=== PATIENT | male | born 1950 | race Caucasian/White ===

== ENCOUNTER 2017-01-11 06:00 | Day surgery (SDC) | payer MEDICARE ==
[~2017-01-11] VITALS: Ht 185.4 cm; Wt 118.2 kg
[~2017-01-11 06:00] MED LIST: ASPIRIN325 MG PO; ASPIRIN81 MG PO; BAYER CHEWABLE81 MG PO; BUPROPION HCL100 M1 PO; CELEXA40 MG PO; CORDARONE200 MG PO; FISH OIL 1,0001 CA1 PO; HALCION0.25 MG PO; HYDROCODONE-APA1 TAB PO; K-DUR20 MEQ PO; KRILL OIL 1,001 EAC1 PO; LASIX20 MG PO; PACERONE200 MG PO; PLAVIX75 MG PO; PRAVACHOL40 MG PO; XANAX0.5 MG PO; XANAX1 MG PO; ZESTORETIC 20/11 TAB PO
[2017-01-11] MEDS ORDERED: ASPIRIN325 MG PO (07:04)
[2017-01-11] MEDS ORDERED: LEXAPRO10 MG PO (07:06)
[2017-01-11] MEDS ORDERED: LISINOPRIL10 MG PO (07:07)
[2017-01-11 07:23] VITALS: BP 139/74; Ht 185.4 cm; Wt 118.2 kg
[2017-01-11 07:29] LABS: ANION GAP 13.8 mmol/L (8-16); CARBON DIOXIDE 26.3 mmol/L (21.0-32.0); CREATININE - SERUM 1.2 mg/dL (0.6-1.3); POTASSIUM - SERUM 4.1 mmol/L (3.5-5.1)
[2017-01-11 07:34] LABS: BASOPHILS 0.3 % (0-2); EOSINOPHILS 2.8 % (0-7); HEMATOCRIT 50.1 % (42.0-54.0); HEMOGLOBIN 17.5 g/dL (13.5-17.5); IMMATURE GRANULOCYTES 0.6 % (0-5); LYMPHOCYTES 20.5 % (15-50); MCH 32.4 pg (26.0-34.0); MCHC 34.9 g/dL (31.0-37.0); MCV 92.8 fL (80.0-100.0); MEAN PLATELET VOLUME 9.1 fL (7.4-10.4); MONOCYTES 10.8 % (2-11); PLATELET COUNT 137 10x3/uL (130-400); RDW 12.9 % (11.5-14.5); WBC 7.1 10x3/uL (4.8-10.8)
--- NOTE | 2017-01-11 09:01 | NUR ---
0845 APPLE JUICE GIVEN
--- NOTE | 2017-01-11 09:02 | NUR ---
WAS UP TO BATHROOM STATES PASSING GAS
--- NOTE | 2017-01-11 09:08 | NUR ---
FULL LIQUID TRAY GIVEN
--- NOTE | 2017-01-11 09:29 | NUR ---
DC TEACHING COMPLETE W/PRESCRIPT GIVEN TO . DEBORAH LIQUID TRAY WELL
--- NOTE | 2017-01-11 09:42 | NUR ---
0935 PIV DC W/CATHETER TIP INTACT
--- NOTE | 2017-01-11 09:48 | NUR ---
DC OUT TO CAR VIA WHEELCHAIR WITH DRIVING
--- NOTE | 2017-01-13 16:52 | OP ---
PATIENT NAME: IVELISSE CABRALES MEDICAL RECORD: [id number] :52 LOCATION:[facility] ADMISSION DATE: SURGEON: ZOË SILVA DO OPERATION DATE: 01/11/17 PROCEDURE: Colonoscopy with polypectomy. INDICATIONS FOR PROCEDURE: Screening colonoscopy and chronic constipation. SCOPE: Copanion video pediatric colonoscope. MEDICATIONS: Propofol 450 milligrams IV per anesthesia. WITHDRAWAL TIME: 19 minutes. ESTIMATED BLOOD LOSS: Minimal. COMPLICATIONS: None. FINDINGS: Informed consent was given. The patient was made comfortable with the above medication. After reaching an adequate level of sedation by slow IV push, the patient was placed on his left side. A digital rectal examination was performed and was normal. The endoscope was then advanced under direct visualization through the rectum to the cecum with visualization of the appendiceal orifice and ileocecal valve. There was a small, benign appearing sessile polyp located in the cecum which measured approximately 4 millimeters in diameter. It was removed using hot forceps. A second polyp located in the ascending colon measured approximately 4 millimeters in diameter. It was benign appearing and sessile. It was removed using a hot snare. The scope was then slowly withdrawn back while the mucosa was carefully examined. The prep in the cecum and ascending colon was poor to fair. It was difficult to wash all of the stool away making visualization difficult. For this reason, small polyps could have been missed. There were no other polyps visualized on this examination. No diverticula were specifically seen. Retroflexion was performed in the rectum where small nonbleeding internal hemorrhoids were visualized. The scope was completely withdrawn from the patient. The patient tolerated the procedure well, and there were no complications. IMPRESSIONS: 1. Two polyps as described above, located in the cecum and ascending colon removed with hot forceps and a hot snare. 2. Small, nonbleeding internal hemorrhoids. PLAN/RECOMMENDATIONS: 1. Discharge home when recovery parameters are met. 2. High fiber diet. 3. Continue current medications. 4. Add Linzess 290 micrograms by mouth daily for chronic idiopathic constipation. 5. Recommend a repeat colonoscopy in 2-3 years due to the polyps and somewhat poor prep. OPERATIVE REPORT [id number] IVELISSE CABRALES ZOË SILVA DO at 5648 CC: [id number] DICTATION DATE: 01/11/17 0800 FURNITURE FINISHER: DM 01/11/[address] [facility] 01/11/17 [facility] [address] [place] [address]
== END 2017-01-11 09:50 | disposition home or self-care (01) ==
LOC: D.OPS 06:00
PROVIDERS: Anesthesiology
DX: K63.5 Polyp of colon (principal); K64.8 Other hemorrhoids; K59.09 Other constipation; Z01.812 Encounter for preprocedural laboratory examination

== ENCOUNTER 2019-03-15 18:31 | Emergency (ER) | payer OTHER ==
[~2019-03-15] VITALS: Ht 185.4 cm; Wt 118.4 kg
[~2019-03-15 18:31] MED LIST changes: +LEXAPRO10 MG PO; +LISINOPRIL10 MG PO
[2019-03-15 19:11] VITALS: Ht 185.4 cm; Wt 118.4 kg
[2019-03-15] MEDS ORDERED: MULTI-DAY VITAM1 TAB PO (19:13)
[2019-03-15] MEDS ORDERED: BUPROPION HCL150 M1 PO (19:13)
[2019-03-15] MEDS ORDERED: VITAMIN D31000 UNI2 PO (19:14)
[2019-03-15] MEDS ORDERED: VITAMIN E200 UNI1 PO (19:14)
[2019-03-15 19:54] LABS: BASOPHILS 0.4 % (0-2); EOSINOPHILS 2.1 % (0-7); HEMATOCRIT 46.3 % (42.0-54.0); HEMOGLOBIN 16.3 g/dL (13.5-17.5); IMMATURE GRANULOCYTES 0.2 % (0-5); LYMPHOCYTES 28.1 % (15-50); MCH 30.6 pg (26.0-34.0); MCHC 35.2 g/dL (31.0-37.0); MCV 86.9 fL (80.0-100.0); MEAN PLATELET VOLUME 8.7 fL (7.4-10.4); MONOCYTES 9.5 % (2-11); NEUTROPHILS 59.7 % (40-80); RBC 5.33 10x6/uL (4.20-6.10); RDW 14.2 % (11.5-14.5); WBC 9.3 10x3/uL (4.8-10.8)
[2019-03-15 19:59] LABS: PLATELET COUNT 169 10x3/uL (130-400)
[2019-03-15 20:16] LABS: ALBUMIN 3.6 g/dL (3.4-5.0); ANION GAP 15.3 mmol/L (8-16); BILIRUBIN - TOTAL 0.42 mg/dL (0.2-1.3); CALCIUM 8.7 mg/dL (8.5-10.1); CARBON DIOXIDE 22.7 mmol/L (21.0-32.0); CREATININE - SERUM 1.2 mg/dL (0.6-1.3); PROTEIN - SERUM 7.5 g/dL (6.4-8.2)
[2019-03-15] MEDS ORDERED: CYCLOBENZAPRINE10 MG PO (20:59)
[2019-03-15 22:13] VITALS: BP 140/93
== END 2019-03-15 23:11 | disposition home or self-care (01) ==
LOC: D.ER 18:31
PROVIDERS: Family Medicine
DX: M54.5 Low back pain (principal); M54.31 Sciatica, right side

== ENCOUNTER → 2019-04-13 09:43 | Outpatient (CLI) | payer OTHER ==
[2019-03-15 19:11] VITALS: BMI 34.4
[~2019-04-13 09:43] MED LIST changes: +BUPROPION HCL150 M1 PO; +CYCLOBENZAPRINE10 MG PO; +MULTI-DAY VITAM1 TAB PO; +NEURONTIN 300300 MG PO; +VITAMIN D31000 UNI2 PO; +VITAMIN E200 UNI1 PO
== END | disposition home or self-care (01) ==
LOC: D.MRI 04-10 08:30
PROVIDERS: ATTEND Orthopaedic Surgery
DX: M54.16 Radiculopathy, lumbar region (principal)

== ENCOUNTER → 2019-05-19 09:35 | Outpatient (CLI) | payer OTHER ==
[2019-03-15 19:11] VITALS: BMI 34.4
--- NOTE | 2019-05-22 09:28 | EC ---
PATIENT:IVELISSE CABRALES DATE OF SERVICE: 05/19/19 SEX: M MEDICAL RECORD: [id number] DATE OF : 52 [facility] AGE OF PATIENT: 68 ADMISSION DATE: 05/19/19 REFERRING PHYSICIAN: INTERPRETING PHYSICIAN: MARGUERITE TORRES MD ECHOCARDIOGRAM REPORT ECHO CHARGES 4 ECHO COMPLETE Date: 05/19/19 CLINICAL DIAGNOSIS: SALEEM/ANGINA H/O CAD/HTN ECHOCARDIOGRAPHIC MEASUREMENTS (adult normal given) AC root (d.<3.7cm) 3.8 cm LV Septum d (<1.2 cm> 1.0 cm Valve Excursion 1.8 cm LV Septum (systole) 1.7 cm Left Atria (s.<4.0cm> 3.7 cm LVPW d(<1.2cm) 1.2 cm RV (d.<2.3cm) 2.7 cm LVPW (sytole) 1.7 cm LV diastole(<5.6CM) 1.8 cm MV E-F(>70mm/sec) cm LV systole 2.9 cm LVOT Diameter 2.2 cm MV exc.(>10mm) cm Est.ejection fraction (50-75%) % DOPPLER: LVIT cm/sec A 70.0 cm/sec E 60.0 cm/sec LA cm/sec RVSP mmHg LVOT 63.0 cm/sec AOP1/2T m/s Asc. Ao 85.0 cm/sec RVOT 57.0 cm/sec RA cm/sec PA 64.0 cm/sec AV Gradient Peak 2.9 mmHg AV Mean 1.6 mmHg AV Area 3.6 cm MV Gradient Peak 2.9 mmHg MV Mean 1.0 mmHg MV Area cm COMMENTS: OP - HC Planer Stone: 1 JENNYFER WICHITA Therapist'S Assistant: 1 Dr. Torres TAPE# PACS Pericardial Effusion N DATE OF SERVICE: FINDINGS: 1. Left ventricular chamber size is within normal limits. Left ventricular systolic function is normal. Overall ejection fraction estimated at 50%. 2. Left atrium, right atrium, and right ventricular chamber sizes are within normal limits. 3. Valvular structures have normal structure and motion. 4. Doppler interrogation reveals no significant valvular insufficiency or stenosis. Pulmonary systolic pressure is normal, estimated at 29 mmHg. ECHOCARDIOGRAM REPORT [id number] IVELISSE CABRALES 5. No evidence of pericardial effusion or left ventricular thrombus. TRANSINT:[id number] Voice Confirmation ID: [id number] DOCUMENT ID: [id number] MARGUERITE TORRES MD at 0928 CC: [id number] DICTATION DATE: 05/20/19 1059 TIP TESTER: 05/20/19 1108 DEP CLI 05/19/19 [place] [id number] [place] [id number]
--- NOTE | 2019-05-22 09:28 | ST ---
PATIENT:IVELISSE CABRALES MEDICAL RECORD: [id number] SEX: M LOCATION:[facility] ORDER #: ADMISSION DATE: 05/19/19 AGE OF PATIENT: 68 REFERRING PHYSICIAN: INTERPRETING PHYSICIAN: MARGUERITE PALOMO MD DATE OF SERVICE: 05/19/2019 Nuclear stress test INDICATION: Angina and coronary artery disease, shortness of breath, hypertension, hyperlipidemia. Preoperative evaluation for back surgery. He was exercised on standard Lexiscan protocol with 33 mCi of sestamibi injected at peak stress, 11 mCi was used previously for rest images. FINDINGS: Gated SPECT reveals preserved ejection fraction at 55% with good wall motion and thickening and brightening throughout all segments. SPECT Imaging: Cardiolite was used as myocardial perfusion agent. There are reversible changes anteriorly, apically, as well as laterally with the basal, mid, apical anterior segments, apical lateral, mid lateral, basal lateral segments throughout the apex itself. The degree of reversibility is moderate. The amount of myocardium involved is moderate to large. OVERALL IMPRESSION: This is a high risk abnormal nuclear stress test reversible ischemia anteriorly, apically, and laterally suggestive of multivessel hemodynamically significant coronary artery disease. TRANSINT:[id number] Voice Confirmation ID: [id number] DOCUMENT ID: [id number] MARGUERITE PALOMO MD at 0928 CC: JOSE WALKER MD [id number] DICTATION DATE: 05/20/19 1107 PATHOLOGY SECRETARY/TRANSCRIPTIONIST: 05/21/19 0026 DEP CLI 05/19/19 [place] [id number] [place] [id number]
== END | disposition home or self-care (01) ==
LOC: D.HCCECHO 09:30
PROVIDERS: ATTEND Internal Medicine Interventional Cardiology
DX: I25.119 Atherosclerotic heart disease of native coronary artery with unspecified angina pectoris (principal)

== ENCOUNTER 2019-05-29 08:10 | Outpatient (CLI) | payer OTHER ==
[~2019-05-29] VITALS: Ht 185.4 cm; Wt 115.9 kg
--- NOTE | ~2019-05-29 | HEMODYNAMI ---
PATIENT:IVELISSE CABRALES MEDICAL RECORD: [id number] : 52 LOCATION:[facility] ADMISSION DATE: 05/29/19 Generatedon:05/29/201911:05 Patient name: IVELISSE CABRALES Patient #: [id number] SSN: : 1950 Date of study: 05/29/2019 Page: Of Hemodynamic Procedure Report Patient Data Patient Demographics Procedure consent was obtained First Name: IVELISSE Gender: Male Last Name: KERON : 1950 [facility] Initial: YISEL Age: 68 year(s) Patient #: [id number] Race: Additional ID: [id number] Contact details Address: [address] [place] [address] State: [place] City: [place] Zip code: [address] Past Medical History Performed procedures and imaging results Date Procedure Procedure Results Comments Stress testing Positive->Intermediate with SPECT MPI risk History of disease Date Diagnosis Comments CAD PVD Hypertension Allergies Allergen Reaction Date Comments Reported Other allergy 05/29/2019 CLONAZEPAM Admission Admission Data Admission Date: 05/29/2019 Admission Time: 8:10 Arrival Date: 05/29/2019 Arrival Time: 0:00 Height (in.): 72.83 BSA: 2.38 (m2) Height (cm.): 185 BMI: 33.89 (kg/m2) Weight (lbs.): 255.74 Weight (kg.): 116 Lab Results Lab Result Date: 05/29/2019 Lab Result Time: 0:00 Biochemistry Name Units Result Min Max BUN mg/dl 19 --(----)*- 7 18 Creatinine mg/dl 1.2 --(---*)-- 0.6 1.3 eGFR ml/min 64.84550 *-(----)-- 90 120 NONAFRICAN CBC Name Units Result Min Max Hematocrit % 47.3 --(-*--)-- 42 54 Hemoglobin g/dl 16.6 --(---*)-- 13.5 17.5 Procedure Procedure Types Cath Procedure Diagnostic Procedure [facility] w/Coronaries w/Grafts Procedure Description Procedure Date Procedure Date: 05/29/2019 Procedure Start Time: 10:51 Procedure End Time: 11:02 Procedure Staff Name Function Igor Torres MD Performing Physician Mary Zamudio RT Monitor Angeline Saleh RT Scrub Zachary Hernández RN Nurse Indication CAD Procedure Data Cath Procedure Fluoroscopy Diagnostic fluoroscopy Total fluoroscopy Time: 2.8 time: 2.8 min min Diagnostic fluoroscopy Total fluoroscopy dose: 368 dose: 368 mGy mGy Contrast Material Contrast Material Type Amount (ml) Isovue 300 76 Entry Location Entry Primary Successful Side Size Upsize Upsize Entry Closure Succes sful Closure Location (Fr) 1 (Fr) 2 (Fr) Remarks Device Remarks Femoral Right 5 Fr Exoseal artery Estimated blood loss: 5 ml Diagnostic catheters Device Type Used For End Catheter Placement MULTIPACK Pigtail 5 Fr Procedure catheter MULTIPACK JL 4.0 5Fr Procedure catheter MULTIPACK 3DRC 5Fr Procedure catheter DIAGNOSTIC AR2 MOD 5 Fr Procedure catheter ([id number]) Procedure Complications No complications Procedure Medications Medication Administration Route Dosage 0.9% NaCl I.V. 100 ml/hr Oxygen etCO2 Nasal cannula 2 l/min Heparin Flush Bag added to field 2 bags (1000units/500ml NS) Lidocaine 2% added to field 20 Benadryl I.V. 50 mg Versed I.V. 2 mg Fentanyl I.V. 100 mcg Versed I.V. 2 mg Hemodynamics Rest BSA: 2.38 (m2) HGB: 16.6 (g/dl) O2 Consumption: Estimated: 267.92 (ml/min) O2 Co nsumption indexed: Estimated:112.57 (ml/min/m) Heart Rate: 61 (bpm) Snapshots Pre Cath Intra NCS Post Cath Vital Signs Time Heart Resp SPO2 etCO2 NIBP (mmHg) Rhythm Pain Sedation Rate (ipm) (%) (mmHg) Status Level (bpm) 10:40:11 60 14 95 0 138/87(115) NSR 0 (11) 10(A) , No pain 10:44:25 64 16 95 35.6 131/83(105) NSR 0 (11) 10(A) , No pain 10:48:35 64 15 96 18.5 132/85(115) NSR 0 (11) 10(A) , No pain 10:52:47 65 16 95 15.6 139/81(115) NSR 0 (11) 10(A) , No pain 10:56:59 67 20 95 0 134/76(101) NSR 0 (11) 9(A) , No pain 11:01:13 66 18 95 1.4 127/74(101) NSR 0 (11) 9(A) , No pain Medications Time Medication Route Dose Verified Delivered Reason Notes Eff ectiveness by by 10:39:46 0.9% NaCl I.V. 100 Zachary Zachary Per ml/hr Betty Hernández physician RN RN 10:39:56 Oxygen etCO2 2 Zachary Zachary for low 02 Nasal l/min Lorigan Alexandriaigan sats cannula RN RN 10:40:07 Heparin Flush added 2 Zachary Zachary used for Bag to bags Lorigan Betty procedure (1000units/500ml field RN RN NS) 10:40:19 Lidocaine 2% added 20ml Zachary Zachary for local to vial Lorigan Lorigan anesthetic field RN RN 10:40:56 Benadryl I.V. 50 mg Zachary Zachary Per Betty Hernández physician RN RN 10:50:33 Versed I.V. 2 mg Zachary Zachary for Lorigan Lorigan sedation RN RN 10:50:42 Fentanyl I.V. 100 Zachary Zachary for mcg Lorigan Lorigan sedation RN RN 10:52:14 Versed I.V. 2 mg Zachary Zachary for Lorigan Lorigan sedation RN individual pension consultant Log Time Note 10:18:33 Informed consent obtained and on chart 10:19:08 Procedure Status Elective Heart Cath (OP). 10:19:09 Time tracking: Regular hours (M-F 7:00 - 5:00) 10:19:12 Plan of Care:Hemodynamics will remain stable., Cardiac rhythm will remain stable., Comfort level will be maintained., Respiratory function will remain adequate., Patient/ family verbilizes understanding of procedure., Procedure tolerated without complication., Recovers from procedure without complications.. 10:19:14 Zachary Hernández RN sent for patient. Start room use. 10:26:24 Patient Weight : 255.74 lbs 10:26:39 Patient Height : 72.83 inches 10:26:43 Arrival Date: 05/29/2019 12:00:00 AM 10:27:12 Lab Result : Hematocrit 47.3 % 10:27:12 Lab Result : eGFR NONAFRICAN 64.05202 ml/min 10:27:12 Lab Result : Hemoglobin 16.6 g/dl 10:27:12 Lab Result : BUN 19 mg/dl 10:27:12 Lab Result : Creatinine 1.2 mg/dl 10:27:39 Patient allergic to Other allergyCLONAZEPAM 10:29:35 Patient received from Pre/Post Procedure Room to CCL 1 Alert and oriented. Tansferred to table in Supine position. 10:29:36 Warm blankets applied, and patel hugger turned on for patient comfort. 10:29:37 Correct patient and procedure confirmed by team. 10:29:37 ECG and BP/O2 sat monitors applied to patient. 10:30:03 H&P Date Dictated: 05/29/2019 New H&P dictated by physician.. 10:39:02 ECG and BP/O2 sat monitors applied to patient. 10:39:03 Vital chart was started 10:39:14 Baseline sample Acquired. 10:39:18 Rhythm: sinus bradycardia 10:39:19 Full Disclosure recording started 10:39:22 Pre-procedure instructions explained to patient. 10:39:22 Pre-op teaching completed and patient verbalized understanding. 10:39:24 Family in patients room. 10:39:26 Patient NPO since Midnight. 10:39:27 Is the patient allergic to Iodine/contrast media? No. 10:39:28 Is patient on blood thinner?No 10:39:31 Patient diabetic? No. 10:39:36 Previous problem with sedation/anesthesia? No ? 10:39:36 Snore? Yes 10:39:37 Sleep apnea? No 10:39:40 Deviated septum? No 10:39:40 Opens mouth fully? Yes 10:39:41 Sticks out tongue? Yes 10:39:43 Airway obstruction? No ? 10:39:45 Dentures? No ? 10:39:46 0.9% NaCl 100 ml/hr I.V. was administered by Zachary Hernández RN; Per physician; Verbal order read back and verified. 10:39:49 Pre procedure: right dorsailis pedis pulse 2+ Normal; easily identifiable; not easily obliterated 10:39:53 IV patent on arrival in left hand with 0.9% NaCl at O. 10:39:56 Oxygen 2 l/min etCO2 Nasal cannula was administered by Zachary Hernández RN; for low 02 sats; Verbal order read back and verified. 10:39:57 Lab results completed and on chart. 10:40:07 Heparin Flush Bag (1000units/500ml NS) 2 bags added to field was administered by Zachary Hernández RN; used for procedure; Verbal order read back and verified. 10:40:15 Stress Test: yes; abnormal MULTIVESSEL 10:40:19 Lidocaine 2% 20ml vial added to field was administered by Zachary Hernández RN; for local anesthetic; Verbal order read back and verified. 10:40:19 Right groin area was prepped with chlora-prep and draped in sterile fashion 10:40:20 Alarms reviewed by R. N. 10:40:20 Sharps counted by scrub and verified by R.N. 10:40:56 Benadryl 50 mg I.V. was administered by Zachary Hernández RN; Per physician; Verbal order read back and verified. 10:41:43 Risk of Mortality: .5 10:41:46 Risk of blood transfusion: 4.1 10:41:50 Risk of BERNABE: 14.1 10:43:22 Procedure type changed to Cath procedure, Diagnostic procedure, LHC, LHC w/Coronaries w/Grafts 10:43:26 Indication : CAD 10:47:38 --------ALL STOP TIME OUT------ 10:47:39 Final Timeout: patient, procedure, and site verified with staff and physician. All members of the team are in agreement. 10:47:46 Right groin site verified by team. 10:47:50 Fire Safety Assessment: A--An alcohol-based skin anteseptic being used preoperatively., C--Open oxygen or nitrous oxide is being used., D--An ESU, laser, or fiber-optic light is being used. 10:47:53 Physical assessment completed. ASA score P 2 - A patient with mild systemic disease as per Igor Torres MD. 10:47:56 2) 60-89 Mildly reduced kidney function, and other findings (as for stage 1) point to kidney disease. 10:48:00 Maximum allowable contrast dose (3.7 X eGFR X 0.75)178 ml. 10:48:03 Sedation plan: IV Moderate Sedation Medication:Versed, Fentanyl 10:50:07 Procedure started. 10:50:33 Versed 2 mg I.V. was administered by Zachary Hernández RN; for sedation; Verbal order read back and verified. 10:50:34 Use device set Femoral Dx 10:50:35 ACIST Syringe (44528) opened to sterile field. 10:50:36 Bag Decanter (2002S) opened to sterile field. 10:50:37 ACIST Hand Control (92337) opened to sterile field. 10:50:38 ACIST Manifold (60790) opened to sterile field. 10:50:39 Tegaderm 4 x 4 (1626W) opened to sterile field. 10:50:40 Medline Cath Pack ([id number]) opened to sterile field. 10:50:40 DIAGNOSTIC Multipack 5Fr catheter set (DN8781) opened to sterile field. 10:50:42 Fentanyl 100 mcg I.V. was administered by Zachary Hernández RN; for sedation; Verbal order read back and verified. 10:50:42 SHEATH 5FR [place] (FXC807) opened to sterile field. 10:50:42 EMERALD Guide Wire (141-904) opened to sterile field. 10:51:06 Local anesthetic to right femoral artery with Lidocaine 2% by Igor Torres MD.INITIAL ACCESS ONLY 10:52:14 Versed 2 mg I.V. was administered by Zachary Hernández RN; for sedation; Verbal order read back and verified. 10:52:23 A 5 Fr sheath was inserted into the Right Femoral artery 10:53:25 A MULTIPACK Pigtail 5 Fr catheter was advanced over the wire and used for Procedure. 10:53:29 LV gram done using CRYSTAL 10:53:31 Injector settings: Ml/sec: 10, Volume: 20, 10:53:43 EF : 50 % 10:53:45 Catheter removed. 10:53:59 A MULTIPACK JL 4.0 5Fr catheter was advanced over the wire and used for Procedure. 10:54:50 LCA angiography performed. 10:54:51 Catheter removed. 10:55:04 A MULTIPACK 3DRC 5Fr catheter was advanced over the wire and used for Procedure. 10:55:48 WEIR to LAD angiography performed. 10:56:17 RCA angiography performed. 10:56:21 Catheter removed. 10:56:23 ACCDominant side:Co-Dominant 10:56:35 A DIAGNOSTIC AR2 MOD 5 Fr catheter ([id number]) was advanced over the wire and used for Procedure. 10:57:22 SVG to Circ angiography performed. 10:57:45 SVG to RCA angiography performed. 10:57:50 Catheter removed. 10:58:11 EXOSEAL 5Fr (EX500) opened to sterile field. 10:58:23 Sheath removed intact; hemostasis achieved with Exoseal to the Right Femoral artery. 10:58:27 Procedure ended.(Physican Out) 10:59:26 Contrast amount:Isovue 300 76ml. 10:59:31 Fluoroscopy time 02.80 minutes. 10:59:36 Fluoroscopy dose: 368 mGy 10:59:36 Flurop Dose total: 368 10:59:43 Dose Area Product 05949 mGy/cm. 10:59:46 Maximum allowable dose exceeded? No. 10:59:47 Sharps counted by scrub and verified by R.N. 10:59:50 Post-op/insertion site Right Femoral artery dressed using a 4 x 4 and Tegaderm. 10:59:55 Post-procedure physical assessment completed. ASA score P 2 - A patient with mild systemic disease as per Igor Torres MD. 11:00:00 Post procedure rhythm: sinus rhythm 11:00:04 Estimated blood loss: 5 ml 11:01:16 Post procedure instruction explained to patient.Patient verbalizes understanding. 11:01:16 Patient needs reinforcement of post procedure teaching. 11:02:05 Procedure and supply charges have been captured, reviewed, submitted and are correct. 11:02:09 Procedure Complication : No complications 11:02:11 Vital chart was stopped 11:02:13 [facility] Findings: mild to moderate CAD (<70%) 11:02:17 Operative report dictated upon procedure completion. 11:02:18 See physician's report for complete and final results. 11:02:20 Report given to Pre/Post Procedure Room. 11:02:24 Patient transfered to Pre/Post Procedure Room with Bed. 11:02:25 Procedure ended. 11:02:25 Full Disclosure recording stopped 11:02:28 End room use (Document Last) 11:04:36 End room use (Document Last) 11:04:55 End room use (Document Last) Device Usage Item Name Manufacture Quantity Catalog Hospital Part Current Minimal L ot# / Number Charge Number Stock Stock Serial# Code ACIST Acist 1 58408 [id number] [id number] [id number] 20 Syringe Medical (63138) Systems Inc Bag Microtek 1 2001S 291912 86303 611672 5 Decanter Medical Inc. (2001S) ACIST Hand Acist 1 47445 871770 311979 650244 5 Control Medical (06289) Systems Inc ACIST Acist 1 22426 220009 848252 740459 5 Manifold Medical (11725) Systems Inc Tegaderm 4 3M 1 1626W 670709 205842 357846 5 x 4 (1626W) Medline Medline 1 [id number] 057188 23164 820280 5 Cath Pack ([id number]) DIAGNOSTIC Cardinal 1 MI2577 047226 22473 055234 30 Multipack Health 5Fr catheter set (OI1495) SHEATH 5FR Terumo 1 FOX875 334681 352725 516365 5 [place] (WXU248) EMERALD Cardinal 1 502-455 595177 121340 273680 5 Guide Wire Health (502-455) MULTIPACK Cardinal 1 683708 5 Pigtail 5 Health Fr catheter MULTIPACK Cardinal 1 786616 5 JL 4.0 5Fr Health catheter MULTIPACK Cardinal 1 100102 5 3DRC 5Fr Health catheter DIAGNOSTIC Cardinal 1 [id number] 180104 014454 757081 20 AR2 MOD 5 Health Fr catheter ([id number]) EXOSEAL 5Fr Cardinal 1 EX500 832342 029241 417359 10 (EX500) Health Signature Audit [place] Stage Time Signature Unsigned Intra-Procedure 05/29/2019 Mary Zamudio 11:04:36 AM RT(R) Intra-Procedure 05/29/2019 Zachary 11:04:55 AM Betty MARTEL Intra-Procedure 05/29/2019 Igor Torres 11:05:09 AM [place] [id number] [place] [address]
[~2019-05-29 08:10] MED LIST changes: -NEURONTIN 300300 MG PO
[2019-05-29] MEDS ORDERED: NEURONTIN 300300 MG PO (08:53)
[2019-05-29 09:02] VITALS: BP 142/85; Ht 185.4 cm; Wt 115.9 kg
[2019-05-29 09:21] LABS: BASOPHILS 0.3 % (0-2); EOSINOPHILS 3.7 % (0-7); HEMATOCRIT 47.3 % (42.0-54.0); HEMOGLOBIN 16.6 g/dL (13.5-17.5); IMMATURE GRANULOCYTES 0.6 % (0-5); LYMPHOCYTES 27.9 % (15-50); MCHC 35.1 g/dL (31.0-37.0); MCV 91.3 fL (80.0-100.0); MEAN PLATELET VOLUME 9.6 fL (7.4-10.4); NEUTROPHILS 55.5 % (40-80); RBC 5.18 10x6/uL (4.20-6.10); RDW 15.3 % (11.5-14.5)
[2019-05-29 09:26] LABS: PLATELET COUNT 209 10x3/uL (130-400)
[2019-05-29 10:03] LABS: ANION GAP 14.4 mmol/L (8-16); CARBON DIOXIDE 25.7 mmol/L (21.0-32.0); CHOL - HDL RATIO 3.1 ratio (2.3-4.9); CREATININE - SERUM 1.2 mg/dL (0.6-1.3); LDL-HDL RATIO 1.8 ratio (1.5-3.5); POTASSIUM - SERUM 4.1 mmol/L (3.5-5.1)
--- NOTE | 2019-05-29 11:10 | NUR ---
PATIENT ARRIVED TO ROOM, PLACED ON 2L NC AND CM. VSS. RIGHT GROIN DRESSING IS CDI, NO S/S OF BLEEDING OR HEMATOMA.
--- NOTE | 2019-05-29 11:25 | NUR ---
PATIENT RESTING, FAMILY AT BEDSIDE. VSS ON 2L NC. RIGHT GROIN DRESSING IS CDI, NO S/S OF BLEEDING OR HEMATOMA. NO C/O PAIN, NUMBNESS, OR TINGLING.
--- NOTE | 2019-05-29 11:55 | NUR ---
HEAD OF BED ELEVATED TO 45 DEGREES. RIGHT GROIN DRESSING IS CDI, NO S/S OF BEEDING OR HEMATOMA. NO C/O PAIN, NUMBNESS, OR TINGLING. VSS ON ROOM AIR. PATIENT GIVEN SANDWICH AND SPRITE PER REQUEST, NO N/V. FAMILY PRESENT AT BEDSIDE.
--- NOTE | 2019-05-29 12:25 | NUR ---
IV REMOVED. RIGHT GROIN DRESSING IS CDI, NO S/S OF BLEEDING OR HEMATOMA. WRITTEN AND VERBAL DISCHARGE INSTRUCTIONS GIVEN TO PATIENT AND SPOUSE, BOTH VOICE UNDERSTANDING. VSS ON ROOM AIR. NO C/O PAIN, NUMBNESS, OR TINGLING.
--- NOTE | 2019-05-29 12:55 | NUR ---
PATIENT TRANSPORTED VIA WHEELCHAIR TO CAR WITH SPOUSE DRIVING, ALL BELONGINGS WITH PATIENT.
--- NOTE | 2019-05-29 17:02 | OP ---
PATIENT NAME: IVELISSE CABRALES MEDICAL RECORD: [id number] :52 LOCATION:[facility] ADMISSION DATE: SURGEON: MARGUERITE PALOMO MD DATE OF OPERATION: 05/29/2019 PROCEDURES: 1. Left heart catheterization. 2. Selective coronary angiography. 3. Left ventriculogram. 4. Vein graft angiography. 5. WEIR angiography. INDICATION: Angina and coronary artery disease. PROCEDURE IN DETAIL: After informed consent was obtained and after a detailed description of risks, benefits as well as alternative therapies, the patient elected to proceed with angiogram and heart catheterization. The right femoral area was prepped and draped in normal sterile fashion. The right femoral artery was cannulated via modified Seldinger technique with placement of 6-Cymro sheath. All catheters exchanged through this sheath. FINDINGS: The left ventriculogram was performed in standard 30-degree CRYSTAL view reveals preserved cardiac wall motion, ejection fraction 50%. SELECTIVE CORONARY ANGIOGRAPHY: 1. Left main is closed. 2. Right coronary artery is closed. 3. WEIR to the LAD is widely patent. Distal LAD is small and diffusely diseased, but widely patent. 4. Vein graft to the left circumflex is widely patent. Distal circumflex is small and diffusely diseased, but widely patent. 5. Vein graft to the right coronary is widely patent. Distal right coronary is small and diffusely diseased, but widely patent. OVERALL IMPRESSION: Wide patency of all of his previously placed grafts with preserved LV function. Distal vessels are small, diffusely diseased. This is the etiology of the continued angina and abnormal nuclear stress test. Center medical management and treatment of the coronary artery disease and cardiac risk factors. TRANSINT:[id number] Voice Confirmation ID: [id number] DOCUMENT ID: [id number] MARGUERITE PALOMO MD at 1702 CC: [id number] DICTATION DATE: 05/29/19 1103 COLLECTIONS AGENT: 05/29/19 1231 DEP CLI 05/29/19 [place] [id number] [place] [address]
--- NOTE | 2019-05-29 17:02 | HP ---
PATIENT: VIELISSE CORONA MEDICAL RECORD: [id number] ACCOUNT: [id number] LOCATION:[facility] : 52 ADMISSION DATE: 05/29/19 PCP: JOSE WALKER MD HISTORY AND PHYSICAL EXAMINATION DIAGNOSES: 1. Angina. 2. Coronary artery disease. 3. Status post coronary artery bypass graft surgery. 4. Hypertension. 5. Hyperlipidemia. HISTORY OF PRESENT ILLNESS: Mr. Corona has been having episodes of chest pain, chest discomfort compatible with angina. He had nuclear stress test that showed ongoing ischemia, now brought for cardiac catheterization. PHYSICAL EXAMINATION: CONSTITUTIONAL/GENERAL APPEARANCE: Well nourished, well developed, appears stated age. EYES: Lids and conjunctivae noninjected. No discharge. No pallor. ENT: Lips within normal limit. No cyanosis. No pallor. NECK: Carotid arteries, bilateral normal upstroke. No bruits. No thrills. No jugular venous pressure or distention. CERVICAL LYMPH NODES: Nontender. Nonenlarged. THYROID: Not enlarged. No nodules. CARDIOVASCULAR: Precordial exam, nondisplaced. No heaves or pericardial thrills. Rate and rhythm, regular. Heart sounds, normal S1, normal S2. No S3, no gallop, no rub. Systolic murmur, not heard. Diastolic murmur, not heard. RESPIRATORY: Respiratory effort, unlabored. Normal curvature. No thoracic deformity. No chest wall tenderness. Percussion, resonant. Auscultation, clear. No wheezes, no rales, no rhonchi. ABDOMEN: Soft, nondistended, nontender. No abdominal pain, no vomiting and normal appetite. MUSCULOSKELETAL: No joint tenderness, normal gait, normal tone. SKIN: Warm and dry. OVERALL IMPRESSION: Anginal symptomatology, abnormal nuclear stress test. We will proceed with coronary angiography. Further care depends upon findings of angiography. TRANSINT:[id number] Voice Confirmation ID: [id number] DOCUMENT ID: [id number] MARGUERITE PALOMO MD at 1702 CC: [id number] DICTATION DATE: 05/29/19 1101 PLANT PROTECTION SUPERVISOR: 05/29/19 1155 DEP CLI 05/29/19 [place] [id number] [place] [address]
== END 2019-05-29 12:55 ==
LOC: D.CATH 08:10
PROVIDERS: ATTEND Internal Medicine Interventional Cardiology
DX: I25.119 Atherosclerotic heart disease of native coronary artery with unspecified angina pectoris (principal)